=== PATIENT | male | born 1980 | race Caucasian/White ===

== ENCOUNTER 2025-02-05 17:54 | Emergency (ER) | payer BC, SELFPAY ==
--- OUTSIDE RECORDS SUMMARY | 2025-02-05 17:56 | XMS_ITS | Referral Summary ---
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 [place] [address] Jos Rosales MD Cervical radiculopathy Discharge Disposition: Discharge to home or self care 12/25/2024 7:10 AM [facility] - 12/25/2024 11:59 PM [facility] Hospital Encounter [facility] [address] [place] [address] Ericka Thomas NP Cervical radiculopathy (Primary Dx); Cervical spinal stenosis Discharge Disposition: Discharge to home or self care 11/20/2024 7:09 AM [facility] - 11/20/2024 11:59 PM [facility] Hospital Encounter [facility] [address] [place] [address] Ericka Thomas NP Myalgia, other site Discharge Disposition: Discharge to home or self care 11/07/2024 5:41 PM [facility] - 11/07/2024 11:59 PM [facility] Hospital Encounter [address] [place] [address] Cervical radiculopathy Discharge Disposition: Discharge to home or self care from Last 3 Months Allergies No known active allergies Medications triamcinolone (KENALOG) 0.1 % ointment Apply topically 2 (two) times a day as needed for irritation or rash Apply to bilateral arms and legs 30 g 3 Active Additional Information Patient not taking.Reported on 02/28/2024 hydrOXYzine (ATARAX) 25 mg tablet Take 1 tablet (25 mg total) by mouth 3 (three) times a day as needed for itching 20 tablet 3 Active Additional Information Patient not taking.Reported on 02/28/2024 hydrocortisone 2.5 % cream Apply topically 2 (two) times a day as needed (hemorrhoids) 30 g 1 4 Active losartan (COZAAR) 50 mg tablet TAKE 1 TABLET BY MOUTH EVERY DAY 90 tablet [address] (NexIUM) 40 mg capsule TAKE 1 CAPSULE BY MOUTH EVERY DAY BEFORE BREAKFAST 90 capsule 1 4 Active cyclobenzaprine (FLEXERIL) 5 mg tablet Take 1 tablet (5 mg total) by mouth daily as needed for muscle spasms for up to 7 days 7 tablet 5 Active celecoxib (CeleBREX) 200 mg capsuleIndicati ons:Thoracic spine pain Take 1 capsule (200 mg total) by mouth daily 30 capsule 1 5 02/27/20 25 Active Active Problems Problem Noted Date Diagnosed Date Hypertension, essential 02/28/2024 Assessment & Plan (02/28/2024 8:19 AM CDT): Normotensive. Continue losartan. Reviewed lifestyle recommendations. Will continue to monitor. Class 1 obesity due to exces s calories with serious comorbidity and body mass index (BMI) of 30.0 to 30.9 in adult 02/28/2024 Chronic left shoulder pain 02/28/2024 Assessment & Plan (02/28/2024 8:19 AM CDT): Neurovascularly intact. Recommend x-ray and physical therapy. Avoid exacerbating activities. If not improving recommend following up with lawn care specialist. Mixed hyperlipidemia 02/28/2024 Assessment & Plan (02/28/2024 8:20 AM CDT): ASCVD score 3.6%. LDL creeping up. Highly encouraged dietary changes. He does well with exercise. Will repeat fasting lipid panel prior to next appointment. He is in agreement with plan and states understanding. Rectal bleeding 11/01/2022 Assessment & Plan (11/01/2022 1:20 PM [facility]): anusol HC supps HS and colonoscopy BMI 29.0-29.9,adult 01/30/2021 Assessment & Plan (01/30/2021 10:06 AM CDT): Not overweight--athletic/muscular build. Reviewed recommendations for daily intake & activity 20-30 minutes/day. Discussed healthy diet and importance of regular physical activity. 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 Exercises 5x/wk. Refused influenza vaccine 01/30/2021 Annual physical exam 04/29/2020 Assessment & Plan (02/28/2024 8:19 AM CDT): Visit preventive in nature. Reviewed medications, chronic conditions, risk factors, lifestyle recommendations. Follow-up in 1 year with fasting labs prior. Of course sooner for any concerns. Assessment & Plan (01/30/2021 9:45 AM CDT): 1. Eat a healthy diet: focus on lean meats and proteins, more fruits, vegetables and whole grains and low in sugars and fats. Limit red meat and avoid processed meat. 2. Maintain a healthy weight; avoid being overweight. Aim for a normal body mass index (BMI) of 18.5-24.9. Help learning to eat healthier, we can set up appointment with coil placer/shake backboard notcher. 3. Have an active lifestyle, strive for 30 minutes of moderate exercise 5 times a week and strength or resistance training at least twice a week. 4. Use broad-spectrum (UVA+UVB) sunscreen with SPF 30 or greater, is water resistant, limit time spent in the sun (10 am-4pm), wear hat, wear UV protective clothing, wear sunglasses. Never use a tanning bed. Skin that was irradiated may be more sensitive over your lifetime. 5. Does not smoke or chew tobacco. 6. Limit alcohol intake, 2 drinks per day for a man. Assessment & Plan (04/29/2020 11:02 PM CDT): 1. Eat a healthy diet: focus on lean meats and proteins, more fruits, vegetables and whole grains and low in sugars and fats. Limit red meat and avoid processed meat. 2. Maintain a healthy weight; avoid being overweight. Aim for a normal body mass index (BMI) of 18.5-24.9. Help learning to eat healthier, we can set up appointment with coil placer/shake backboard notcher. 3. Have an active lifestyle, strive for 30 minutes of moderate exercise 5 times a week and strength or resistance training at least twice a week. 4. Use broad-spectrum (UVA+UVB) sunscreen with SPF 30 or greater, is water resistant, limit time spent in the sun (10 am-4pm), wear hat, wear UV protective clothing, wear sunglasses. Never use a tanning bed. Skin that was irradiated may be more sensitive over your lifetime. 5. Do not smoke or chew tobacco. 6. Limit alcohol intake, 2 drinks per day for a man. Encounter for screening for lipoid disorders 04/2020 Assessment & Plan (01/30/2021 9:46 AM CDT): Copy of results from 01/29/21 given to Paul Lee. Reviewed results at time of appointment. 05/02/20 QM=684 HDL=61 NI=740 MFI=141 TC/HDL=3.7 01/29/21 OD=100 HDL=53 TG=92 MIN=707 TC/HDL=4.0 Reviewed upward trending LDL & elevated total cholesterol. Assessment & Plan (05/01/2020 9:57 PM CDT): Lipid panel ordered; will call w/results when received. Reviewed diet/exercise recommendations. Esophageal dysphagia 08/09/2018 Overview (08/09/2018): Added automatically from request for surgery [id number] Resolved Problems Problem Noted Date Diagnosed Date Resolved Date BMI 28.0-28.9,adult 05/01/2020 01/31/20 21 Assessment & Plan (05/01/2020 9:56 PM CDT): Discussed healthy diet and importance of regular physical activity. BMI is acceptable for this patient. Immunizations Immunization Administration Dates Next Due Influenza, Split 11/16/2013 Influenza, Trivalent, Preser vative Free, Intramuscular 11/16/2013 Influenza, Unspecified 2024(Deferr ed: Patient Refused),02/17/2023(Deferred: Patient Refused),07/24/2021(Deferred: Patient Refused),01/30/2021(Deferred: Patient Refused),01/30/2021(Deferred: Patient Refused),10/24/2020(Deferred: Patient Refused),10/24/2019(Deferred: Patient Refused),10/24/2019(Deferred: Patient Refused),07/24/2019(Deferred: Patient Refused),07/03/2019(Deferred: Patient Refused),10/24/2018(Deferred: Patient Refused),08/07/2018(Deferred: Patient Refused),07/24/2018(Deferred: Patient Refused),10/24/2017(Deferred: Patient Refused) Social History Tobacco Use Types Packs/Day Years Used Date Smoking Tobacco: Former Cigarettes Q uit: 02/28/2018 Smokeless Tobacco: Never Tobacco Cessation:Counseling Given: Not Answered Comments:Smoking History Packs/day: 1 Packs Alcohol Use Standard Drinks/Week Comments Yes 0 (1 standard drink = 0.6 oz pur e alcohol) occasionally AUDIT-C Answer Date Recorded Q1: How often do you have a drink containing alc ohol? 2-4 times a month 02/17/2023 Q2: How many drinks containi ng alcohol do you have on a typical day when you are drinking? 3 or 4 02/17/2023 Q3: How often do you have si x or more drinks on one occasion? Monthly 02/17/2023 PHQ-2 Answer Date Recorded PHQ-2 Total Score (If total score is 3 or more points, staff should administer the PHQ-9) 2 10/30/2024 PHQ-9 Answer Date Recorded PHQ-9 Total Score 5 10/30/2024 Personal Safety Answer Date Recorded Getting School Help Needed Denies 10/27 Sex and Gender Information Value Date Recorded Sex Assigned at Not on file Legal Sex Male 2:49 AM [facility] Gender Identity Not on file Sexual Orientation Not on file Last Filed Vital Signs Vital Sign Reading Time Taken Comments Blood Pressure 137/93 01/16/2025 11:36 AM CDT Pulse 77 01/16/2025 11:36 AM CDT Temperature 36.3 C (97.4 F) 01/16/2025 11:16 AM CDT Respiratory Rate 16 01/16/2025 11:36 AM CDT Oxygen Saturation 99% 01/16/2025 11:36 AM CDT Inhaled Oxygen Concentration - - Weight 92.1 kg (203 lb) 07/18/2024 10:27 AM CDT Height 175.3 cm (5' 9 ) 07/18/2024 10:27 AM CDT Body Mass Index 29.98 07/18/2024 10:27 AM CDT Plan of Treatment Not on file Procedures Procedure Name Priority Date/Time Associated Diagnosis Comments PAIN MGMT IMAGING CERVICAL/THORACIC EPIDURAL STEROID INJ Schedule Routine, Read Routine (OP Routine) 01/16/2025 11:32 AM CDT Cervical radiculopathy PAIN MGMT IMAGING ULTRASOUND TRIGGER POINT INJ 3+ MUSCLE GROUP Schedule Routine, Read Routine (OP Routine) 11/20/2024 7:09 AM [facility] Myalgia, other site MRI CERVICAL SPINE WO CONTRAST Schedule Routine, Read Routine (OP Routine) 11/07/2024 6:30 PM [facility] Cervical radiculopathy COLONOSCOPY 11/22/2022 11:19 AM [facility] SERUM HEPATITIS PANEL Routine 03/02/2017 3:09 AM CDT from Last 3 Months or Most Recently Relevant to Health Maintenance Results * Imaging Cervical/Thoracic Epidural Steroid INJ (08865) (01/16/2025 11:32 AM CDT) Narrative [facility] - 01/16/2025 11:33 AM CDT The images from this study are not interpreted by Radiology. Please refer to the physician's procedure / OR operative note. us Ericka Thomas NP IMG PAIN MGMT PROCEDURES Fin al Result Performing Organization Address [facility]/ZIP Co de Phone Number [facility] * Imaging Ultrasound Trigger Point INJ 3+ Muscle Groups () (11/20/2024 7:09 AM [facility]) Narrative [facility] - 11/20/2024 7:09 AM [facility] The images from this study are not interpreted by Radiology. Please refer to the physician's procedure / OR operative note. us Jos Rosales MD IMG PAIN MGMT PROCEDURE S Final Result Performing Organization Address [facility] Co de Phone Number [facility] * MRI Cervical Spine WO Contrast (11/07/2024 6:30 PM [facility]) Anatomical Region Laterality Modality Spine N/A Magnetic Resonan ce 11/08/2024 9:04 AM [facility] Narrative 11/08/2024 9:12 AM [facility] EXAM DESCRIPTION: MRI CERVICAL SPINE WO CONTRAST REASON FOR STUDY: Neck pain, chronic, cervical radiculopathy, radicular features after sneezing Left sided neck pain and popping, a few weeks ago, patient sneezed and experienced sharp pain radiation across base of neck and down both arms, continues to have pain TECHNIQUE: Sagittal and Axial imaging includes T1, T2, STIR and gradient echo sequences. COMPARISON: No comparison. FINDINGS: ALIGNMENT: Mild straightening of cervical lordosis. Alignment otherwise is normal. VERTEBRAE: Vertebral body height is maintained. No acute osseous abnormality. DISCS: Multilevel disc degeneration. See detail below. HARDWARE: None in the spine. CORD: Normal in size and signal intensity. INDIVIDUAL LEVELS: C1-C2: No significant spinal stenosis. C2-C3: No significant spinal stenosis or neural foraminal stenosis. C3-C4: Mild disc osteophyte complex with shallow tiny central protrusion. Mild effacement of anterior thecal sac CSF with mild anterior CSF effacement. No cord impingement. No foraminal narrowing.. C4-C5: Disc space narrowing with chronic appearing posterior endplate osteophytic and uncovertebral spurs. Moderate to significant bilateral foraminal narrowing. Moderate spinal stenosis with moderate flattening of the ventral cord. C5-C6: Bulky broad-based posterior vertebral disc osteophytic complex with right-sided asymmetry. Uncovertebral and facet arthritic changes bilaterally. Severe spinal stenosis with moderate cord impingement, right greater than left. Severe right and [id number] left foraminal stenosis. C6-C7: Bilateral uncovertebral spurring. No significant central canal stenosis. Mild bilateral foraminal narrowing. C7-T1: No significant spinal stenosis or neural foraminal stenosis. BASE OF BRAIN: No significant finding. UPPER THORACIC: Incompletely imaged. No significant spinal stenosis or foraminal stenosis. OTHER: Small 1 cm T2 hyperintense focus at the midline base of tongue-vallecula indeterminate but potentially representing small thyroglossal duct cyst.. IMPRESSION: Multilevel cervical spondylosis with severe spinal stenosis and moderate cord impingement at C5-6 with severe right greater than left foraminal narrowing. Moderate to significant bilateral foraminal narrowing at C4-5 with moderate cord flattening. Please correlate with radiculopathy symptoms. Incidental small T2 hyperintense focus at the midline base of tongue-vallecula. This could represent a small thyroglossal duct cyst. Please correlate with clinical factors. THIS IS AN ELECTRONICALLY VERIFIED FINAL REPORT 11/08/2024 9:12 AM - Electronically signed by Kevin Petersen M.D. LC: STANISLAW Report ID: [id number] Reading Location: [id number] Procedure Note Vee Petersen MD - 11/08/2024 EXAM DESCRIPTION: MRI CERVICAL SPINE WO CONTRAST REASON FOR STUDY: Neck pain, chronic, cervical radiculopathy, radicular features after sneezing Left sided neck pain and popping, a few weeks ago, patient sneezed and experienced sharp pain radiation across base of neck and down both arms, continues to have pain TECHNIQUE: Sagittal and Axial imaging includes T1, T2, STIR and gradientecho sequences. COMPARISON: No comparison. FINDINGS: ALIGNMENT: Mild straightening of cervical lordosis. Alignmentotherwise is normal. VERTEBRAE: Vertebral body height is maintained. No acute osseous abnormality. DISCS: Multilevel disc degeneration. See detail below. HARDWARE: None in the spine. CORD: Normal in size and signal intensity. INDIVIDUAL LEVELS: C1-C2: No significant spinal stenosis. C2-C3: No significant spinal stenosis or neural foraminal stenosis. C3-C4: Mild disc osteophyte complex with shallow tiny centralprotrusion. Mild effacement of anterior thecal sac CSF with mild anterior CSFeffacement. No cord impingement. No foraminal narrowing.. C4-C5: Disc space narrowing with chronic appearing posterior endplate osteophytic and uncovertebral spurs. Moderate to significant bilateral foraminal narrowing. Moderate spinal stenosis with moderate flattening ofthe ventral cord. C5-C6: Bulky broad-based posterior vertebral disc osteophytic complexwith right-sided asymmetry. Uncovertebral and facet arthritic changesbilaterally. Severe spinal stenosis with moderate cord impingement, right greater than left. Severe right and unag-jx-kxrbonmq left foraminal stenosis. C6-C7: Bilateral uncovertebral spurring. No significant central canal stenosis. Mild bilateral foraminal narrowing. C7-T1: No significant spinal stenosis or neural foraminal stenosis. BASE OF BRAIN: No significant finding. UPPER THORACIC: Incompletely imaged. No significant spinal stenosis or foraminal stenosis. OTHER: Small 1 cm T2 hyperintense focus at the midline base of tongue-vallecula indeterminate but potentially representing smallthyroglossal duct cyst.. IMPRESSION: Multilevel cervical spondylosis with severe spinal stenosis and moderatecord impingement at C5-6 with severe right greater than left foraminalnarrowing. Moderate to significant bilateral foraminal narrowing at C4-5 withmoderate cord flattening. Please correlate with radiculopathy symptoms. Incidental small T2 hyperintense focus at the midline base of tongue-vallecula. This could represent a small thyroglossal duct cyst.Please correlate with clinical factors. THIS IS AN ELECTRONICALLY VERIFIED FINAL REPORT 11/08/2024 9:12 AM - Electronically signed by Kevin Petersen M.D. LC: STANISLAW Report ID: [id number] Reading Location: [id number] Jos Rosales MD IMG MRI PROCEDURES Rosario l Result * COLONOSCOPY (11/22/2022 11:19 AM [facility]) Anatomical Region Laterality Modality Other Narrative Procedure Note Jeremy Gray MD - 11/22/2022 11:19 AM CST [facility] Patient Name: Paul Lee Procedure Date: 11/22/2022 11:19 AM Date of : 1980 Admit Type: Outpatient Age: 42 Gender: Male Attending MD: Jeremy Gray M.D. Room: [facility] ENDOSCOPY ROOM 2 Note Status: Finalized Patient Profile: Refer to note in patient chart for documentation of history and physical. Procedure: Colonoscopy Indications: This is the patient's first colonoscopy,Hematochezia Referring MD: Chino Allen M.D. Providers: Jeremy Gray M.D. Impression: - Hemorrhoids found on perianal exam. - The entire examined colon is normal. - No specimens collected. Recommendation: - Discharge patient to home. - Resume previous diet. - Continue present medications. - Repeat colonoscopy in 10 years for screening purposes. - Return to primary care physician as previously scheduled. Medicines: Propofol per Anesthesia Complications: No immediate complications. Estimated Blood Loss: Estimated blood loss: none. Procedure: Pre-Anesthesia Assessment: - This assessment was completed [Time ofAssessment] prior to the administration of sedation. The benefits, risks and alternatives of theprocedure and sedation were discussed and informed consentwas obtained. All questions were answered. Please referto the signed informed consent document in the medical record. The bowel preparation used was Miralax and bisacodyl tablets via single dose instruction. The scope was passed under direct vision. TheColonoscope [id number] was introduced through the anus and advanced to the the cecum, identified by appendiceal orifice and ileocecal valve. The colonoscopy was performed without difficulty. The patient tolerated the procedure well. The qualityof the bowel preparation was excellent. The ileocecal valve, appendiceal orifice, and rectum were photographed. Findings: Hemorrhoids were found on perianal exam. The colon (entire examined portion) appeared normal. Electronically signed by Jeremy Gray M.D. Jeremy Gray M.D. 11/22/2022 12:10:25 PM Number of Addenda: 0 Note Initiated On: 11/22/2022 11:19 AM Procedure Code(s): --- Professional --- 55239, Colonoscopy, flexible; diagnostic, including collection of specimen(s) by brushing or washing, when performed (separateprocedure) Diagnosis Code(s): --- Professional --- K92.1, Melena (includes Hematochezia) K64.9, Unspecified hemorrhoids CPT copyright 2020 [employer]. All rights reserved. The codes documented in this report are preliminary and upon information coder reviewmay be revised to meet current compliance requirements. Recognized by the [employer] for promoting quality in endoscopy us Jeremy Gray MD ENDOSCOPY PROCEDURES Final Re sult * Serum Hepatitis panel (03/02/2017 3:09 AM CDT) HAV ab, IgM NON-REACTI VE NON-REACTI VE CDR HISTORICAL RESULTS HBV surface ag NON-REACTI VE NON-REACTI VE CDR HISTORICAL RESULTS HBV core ab, IgM NON-REACTI VE NON-REACTI VE CDR HISTORICAL RESULTS HCV ab NON-REACTI VE NON-REACTI VE CDR HISTORICAL RESULTS Hepatitis signal to cutoff ratio 0.01 <1.00 CDR HISTORICAL RESULTS Serum 03/02/2017 3:09 AM CDT Narrative CDR HISTORICAL RESULTS - 03/04/2017 10:00 AM CDT Test performed at [facility] [address] [place] [address] Director: CURRY GARCIA DO,MPH us Historical Provider LAB BLOOD ORDERABLES Rosario madrid Result CDR HISTORICAL RESULTS from Last 3 Months or Most Recently Relevant to Health Maintenance [place] For more information, please contact: [phone] * Full Code (Latest Code Status on File) Date Activated Date Inactivated Comments 11/22/2022 10:58 AM 11/22/2022 5:03 PM * Full Code Date Activated Date Inactivated Comments 08/18/2018 9:19 AM 08/18/2018 1:03 PM * Full Code Date Activated Date Inactivated Comments 08/18/2018 9:19 AM 08/18/2018 9:19 AM Care Teams 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
--- OUTSIDE RECORDS SUMMARY | 2025-02-05 17:56 | XMS_ITS | Clinical Summary ---
Author Organization [facility] [place] Address [address] [place] [address] Care Team Providers Care Warehouse Picker Name Role Phone Chino Allen MD Primary Care Provider [phone] Jos Rosales MD Unavailable [phone] Allergies No known active allergies Medications triamcinolone [...] If not improving recommend following up with nursing education specialist. Mixed hyperlipidemia 02/28/2024 Assessment & Plan (02/28/2024 8:20 AM CDT): ASCVD score 3.6%. LDL creeping up. Highly encouraged dietary changes. He does well with exercise. Will repeat fasting lipid panel prior to next appointment. He is in agreement with plan and states understanding. Rectal bleeding 11/01/2022 Assessment & Plan (11/01/2022 1:20 PM SHELLFISH PROCESSING MACHINE TENDER): anusol HC supps HS and colonoscopy BMI 29.0-29.9,adult 01/30/2021 Assessment & Plan (01/30/2021 10:06 AM CDT): Not overweight--athletic/muscular build. Reviewed recommendations for daily intake & activity 20-30 minutes/day. Discussed healthy diet and importance of regular physical activity. 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 Exercises 5x/wk. Refused influenza vaccine 01/30/2021 [...] healthier, we can set up appointment with stain maker/client application support specialist. 3. Have an active lifestyle, strive for [...] healthier, we can set up appointment with stain maker/client application support specialist. 3. Have an active lifestyle, strive for [...] Reviewed results at time of appointment. 05/02/20 WP=628 HDL=61 HI=050 MXI=119 TC/HDL=3.7 01/29/21 VM=566 HDL=53 TG=92 QEW=627 TC/HDL=4.0 Reviewed upward trending LDL & elevated total cholesterol. Assessment & Plan (05/01/2020 9:57 PM CDT): Lipid panel ordered; will call w/results when received. Reviewed diet/exercise recommendations. Esophageal dysphagia 08/09/2018 Overview (08/09/2018): Added automatically from request for surgery [id number] Resolved Problems Problem Noted Date Diagnosed Date Resolved Date BMI 28.0-28.9,adult 05/01/2020 01/31/20 Assessment & Plan (05/01/2020 9:56 PM CDT): Discussed healthy diet and importance of regular physical activity. BMI is acceptable for this patient. Encounters Date Type Department Care Team Description 01/16/2025 11:00 AM CDT - 01/16/2025 11:59 PM CDT Hospital Encounter [facility] [address] [facility] A, Greg[address] [place] [address] Jos Rosales MD Cervical radiculopathy Discharge Disposition: Discharge to home or self care 12/25/2024 7:10 AM SHELLFISH PROCESSING MACHINE TENDER - 12/25/2024 11:59 PM [facility] Hospital Encounter [facility] [address] [place], [place] [address]dg A, Greg[address] [place] [address] Ericka Thomas NP Cervical radiculopathy (Primary Dx); Cervical spinal stenosis Discharge Disposition: Discharge to home or self care 11/20/2024 7:09 AM SHELLFISH PROCESSING MACHINE TENDER - 11/20/2024 11:59 PM [facility] [address] [place] [address] Ericka Thomas NP Myalgia, other site Discharge Disposition: Discharge to home or self care 11/07/2024 5:41 PM SHELLFISH PROCESSING MACHINE TENDER - 11/07/2024 11:59 PM SHELLFISH PROCESSING MACHINE TENDER Hospital Encounter [facility] [address] [place] [address] Cervical radiculopathy Discharge Disposition: Discharge to home or self care from Last 3 Months Immunizations Immunization Administration Dates Next Due Influenza, Split 11/16/2013 Influenza, Trivalent, Preser vative Free, Intramuscular 11/16/2013 Influenza, Unspecified 2024(Deferr ed: Patient Refused),02/17/2023(Deferred: Patient Refused),07/24/2021(Deferred: Patient Refused),01/30/2021(Deferred: Patient Refused),01/30/2021(Deferred: Patient Refused),10/24/2020(Deferred: Patient Refused),10/24/2019(Deferred: Patient Refused),10/24/2019(Deferred: Patient Refused),07/24/2019(Deferred: Patient Refused),07/03/2019(Deferred: Patient Refused),10/24/2018(Deferred: Patient Refused),08/07/2018(Deferred: Patient Refused),07/24/2018(Deferred: Patient Refused),10/24/2017(Deferred: Patient Refused) Surgical History Surgery Date Site/Laterality Comments COLONOSCOPY 11/22/2022 Medical History Medical History Date Comments Hx Other Medical Tobaccoism Dysphagia States food gets stuck , states medication is helping, has had vomiting GERD (gastroesophageal reflux disease) Hypertension Family History Medical History Relation Name Comments COPD Father Don COPD; Coronary artery disease Father Don Lauri nary artery disease; Heart attack Father Don 12/23 03/15 Hyperlipidemia Father Don Hyperlipidemi a; Hypertension Father Don Hypertension; Other Father Don Tobaccoism; Diabetes Mother Ioana Diabetes mellit us; Thyroid disease Mother Ioana Thyroid diso rder; Colon cancer Paternal Grandfather Relation Name Status Comments Father Don Mother Ioana Alive Paternal Grandfather Alive Social History Tobacco Use Types Packs/Day Years [...] on file Legal Sex Male 2:49 AM SHELLFISH PROCESSING MACHINE TENDER Gender Identity Not on file Sexual Orientation Not on file Obstetrics History Last Filed Vital Signs Vital Sign Reading [...] 07/18/2024 10:27 AM CDT Plan of Treatment Health Maintenance Due Date Last Done Comments DTaP/Tdap/Td Vaccine (1 - Tdap) 01/21/1991 Varicella Vaccines (1 of 2 - 13+ 2-dose series) 01/21/1993 Hepatitis B Screening 01/21/1998 Regular Well Visit/Exam 18-64 02/27/2025 02/28/2024, 02/17/2023, 02/05/2022, Additional history exists Influenza Vaccine (Season Ended) 2025 11/16/2013, 11/16/2013 Depression Screening 10/30/2025 10/30/2024, 10/30/2024, 02/28/2024, Additional history exists Colon Cancer Screening-Colonoscopy 11/22/2032 11/22/2022 Hepatitis C Screening Completed 03/02/2017 HPV Vaccines Aged Out No longer eligi ble based on patient's age to complete this topic Pneumococcal vaccine <65 Aged Out No longer eligible based on patient's age to complete this topic Procedures Procedure Name Priority Date/Time Associated Diagnosis Comments PAIN MGMT IMAGING CERVICAL/THORACIC EPIDURAL STEROID INJ Schedule Routine, Read Routine (OP Routine) 01/16/2025 11:32 AM CDT Cervical radiculopathy PAIN MGMT IMAGING ULTRASOUND TRIGGER POINT INJ 3+ MUSCLE GROUP Schedule Routine, Read Routine (OP Routine) 11/20/2024 7:09 AM SHELLFISH PROCESSING MACHINE TENDER Myalgia, other site MRI CERVICAL SPINE WO CONTRAST Schedule Routine, Read Routine (OP Routine) 11/07/2024 6:30 PM SHELLFISH PROCESSING MACHINE TENDER Cervical radiculopathy COLONOSCOPY 11/22/2022 11:19 AM SHELLFISH PROCESSING MACHINE TENDER SERUM HEPATITIS PANEL Routine 03/02/2017 3:09 AM CDT from Last 3 Months or Most Recently Relevant to Health Maintenance Results * Imaging Cervical/Thoracic Epidural Steroid INJ (22460) (01/16/2025 11:32 AM CDT) Narrative [facility] - 01/16/2025 11:33 AM CDT The images from this study are not interpreted by Radiology. Please refer to the physician's procedure / OR operative note. us Ericka Thomas NP IMG PAIN MGMT PROCEDURES Peewee al Result [facility] * Imaging Ultrasound Trigger Point INJ 3+ Muscle Groups (03819) (11/20/2024 7:09 AM SHELLFISH PROCESSING MACHINE TENDER) Narrative [facility] - 11/20/2024 7:09 AM SHELLFISH PROCESSING MACHINE TENDER The images from this study are not interpreted by Radiology. Please refer to the physician's procedure / OR operative note. us Jos Rosales MD IMG PAIN MGMT PROCEDURE S Final Result [facility] * MRI Cervical Spine WO Contrast (11/07/2024 6:30 PM SHELLFISH PROCESSING MACHINE TENDER) Anatomical Region Laterality Modality Spine N/A Magnetic Resonan ce 11/08/2024 9:04 AM SHELLFISH PROCESSING MACHINE TENDER Narrative 11/08/2024 9:12 AM SHELLFISH PROCESSING MACHINE TENDER EXAM DESCRIPTION: MRI CERVICAL SPINE WO CONTRAST [...] right greater than left. Severe right and shtb-[id number] left foraminal stenosis. C6-C7: Bilateral uncovertebral spurring. [...] Kevin Petersen M.D. LC: STANISLAW Report ID: [id number] Reading Location: [place] [address] Procedure Note Vee Petersen MD - 11/08/2024 [...] right greater than left. Severe right and frfw-[id number] left foraminal stenosis. C6-C7: Bilateral uncovertebral spurring. [...] Kevin Petersen M.D. LC: STANISLAW Report ID: [id number] Reading Location: [id number] us Jos Rosales MD IM MRI PROCEDURES Rosario l Result * COLONOSCOPY (11/22/2022 11:19 AM SHELLFISH PROCESSING MACHINE TENDER) Anatomical Region Laterality Modality Other Narrative Procedure Note Jeremy Gray MD - 11/22/2022 11:19 AM CST [facility] Patient Name: Paul Lee Procedure Date: 11/22/2022 11:19 AM Date of : 1980 Admit Type: Outpatient Age: 42 Gender: Male Attending MD: Jeremy Gray M.D. Room: [facility] ENDOSCOPY ROOM 2 Note Status: Finalized [...] scope was passed under direct vision. TheColonoscope [id number] was introduced through the anus and advanced [...] 11:19 AM Procedure Code(s): --- Professional --- 74239, Colonoscopy, flexible; diagnostic, including collection of specimen(s) by brushing or washing, when performed (separateprocedure) Diagnosis Code(s): --- Professional --- K92.1, Melena (includes Hematochezia) K64.9, Unspecified hemorrhoids CPT copyright 2020 [employer]. All rights reserved. The codes documented in this report are preliminary and upon consultant luxury and auto. vice president jaguar brand (ex ) reviewmay be revised to meet current compliance requirements. Recognized by the [employer] for promoting quality in endoscopy Jeremy Gray MD ENDOSCOPY PROCEDURES Final Re [...] 03/04/2017 10:00 AM CDT Test performed at [facility] [address] [address] Director: CURRY GARCIA DO,MPH us Historical Provider LAB BLOOD ORDERABLES Rosario madrid Result CDR HISTORICAL RESULTS from Last 3 Months or Most Recently Relevant to Health Maintenance Insurance [employer] [place] [employer] [place] Advance Directives For more information, please contact: [phone] * Full Code (Latest Code Status on File) Date Activated Date Inactivated Comments 11/22/2022 10:58 AM 11/22/2022 5:03 PM * Full Code Date Activated Date Inactivated Comments 08/18/2018 9:19 AM 08/18/2018 1:03 PM * Full Code Date Activated Date Inactivated Comments 08/18/2018 9:19 AM 08/18/2018 9:19 AM Care Teams Warehouse Picker Relationship Specialty Start Date End Date Chino Allen MD [address] [place] [address] PCP - General 01/05/13 Jos Rosales MD [address] [place] [address] Consulting Physician Anesthesiology 10/30/24
[2025-02-05 18:10] VITALS: BP 147/92; PULSE 96; RESP 18; TEMP 36.6; O2SAT 99
--- NOTE | 2025-02-05 18:37 | ED_ITS ---
HPI - URI/Sore Throat General Chief Complaint: Upper Respiratory Infection Stated Complaint: sore throat Time Seen by Provider: 02/05/25 18:37 Source: patient, RN notes reviewed and old records reviewed Mode of arrival: ambulatory Limitations: no limitations History of Present Illness HPI Narrative: 45-year-old male who presents to [facility] with complaints of sore throat since yesterday. Patient reports that he has has had sore throat since Tuesday morning. Patient reports that he was in [place] last week and just returned on Tuesday.Patient states some nasal drainage noted states some history of seasonal allergies. denies any acute cough or chest congestion, reports no known fevers,chills or body aches. MD elicited complaint: sore throat Pertinent past history: seasonal allergies Onset (ago): day(s) (2 days) Pain scale (0-10): 5 Able to tolerate fluids by mouth: Yes Exacerbating factors: swallowing Treatments prior to arrival: none Related Data Home Medications ?Medication ?Instructions ?Recorded ?Confirmed ?Last Taken ?Type pantoprazole PO BID 05/14/21 Unknown History esomeprazole magnesium 40 mg mg 02/05/25 Unknown History capsule,delayed release losartan 50 mg tablet mg 02/05/25 Unknown History Allergies Allergy/AdvReac Type Severity Reaction Status Date / Time No Known Allergies Allergy Verified 02/05/25 18:08 Review of Systems Review of Systems: CONSTITUTIONAL: Denies malaise, chills, sweats, or fever. EYES: Denies visual changes, redness, or discharge. ENT: Reports rhinorrhea, congestion, sinus pressure,no otalgia and positive for sore throat. CARDIOVASCULAR: Denies chest pain, palpitations, or edema. RESPIRATORY: Reports no cough.? Denies dyspnea. GASTROINTESTINAL: Denies abdominal pain, nausea, vomiting, diarrhea SKIN: Denies rash or itching. MUSCULOSKELETAL: Denies myalgia. NEUROLOGIC: Denies headache. All systems reviewed & are unremarkable except as noted in HPI and below [facility] Past Medical History Medical History (Updated 02/07/25 @ 11:40 by Sofia Phillips NP) Seasonal allergies Hypertension GERD (gastroesophageal reflux disease) Social History Social History (Updated 02/07/25 @ 11:33 by Sofia Phillips NP) Smoking status: Former smoker Additional smoking assessment comments: Quit 2017 Alcohol intake: current Alcohol use details: social Substance use: never Gender identity (if verbalized by the patient): Male Comments At time of signature, agree with nursing past medical, surgical, social and family history. There is no relevant family history pertinent to the presenting complaint Exam Narrative: GENERAL: Well-appearing, well-nourished, and in no acute distress. HEAD: Normocephalic EYES: PERRLA, conjunctivae clear ENT: Nares clear, turbinates edematous and erythematous, clear discharge. Mucous membranes moist. TM pearly camacho with dull light reflex bilaterally; no tragal tenderness. Oropharynx erythematous without lesions. Tonsils red not enlarged and without exudate, no drooling, no hoarseness, no trismus, uvula midline.post nasal drainage NECK: Supple. No lymphadenopathy CHEST: Clear to auscultation, breath sounds equal. No wheezing, rhonchi, rales, or stridor. No respiratory distress, speaks in full sentences.no cough noted SAO2 99% on room air HEART: Regular rate and rhythm. No murmur heard. SKIN: Warm, dry, no rash. NEURO: Alert and oriented x3. PSYCH: Normal mood and affect Course Course Emergency Course: Patient is aware of diagnosis, understands and agrees to treatment plan.? Anticipatory guidance given.? Patient agrees to follow-up as directed and is aware of reasons to seek care at the emergency department. Portions of this record may have been created with voice recognition software Level of Care: Express Care Visit Vital Signs Vital signs: Vital Signs Temperature 36.6 C 02/05/25 18:10 Pulse Rate 96 02/05/25 18:10 Respiratory Rate 18 02/05/25 18:10 Blood Pressure 147/92 H 02/05/25 18:10 Pulse Oximetry 99 02/05/25 18:10 Oxygen Delivery Room Air 02/05/25 18:10 Temperature 36.6 C 02/05/25 18:10 Pulse Rate 96 02/05/25 18:10 Respiratory Rate 18 02/05/25 18:10 Blood Pressure 147/92 H 02/05/25 18:10 Pulse Oximetry 99 02/05/25 18:10 Oxygen Delivery Room Air 02/05/25 18:10 Reviewed MDM - URI/Sore Throat MDM Narrative Medical decision making narrative: Differential diagnosis considered: Menard virus, strep pharyngitis, allergic rhinitis, upper respiratory tract infection, sinusitis, rhinosinusitis, nasopharyngitis. viral pharyngitis, otitis media, otitis externa, pneumonia, br onchitis, viral cough syndrome, viral syndrome, and influenza.? Exam findings show no acute concerns or changes; patient is non-toxic appearing and is in no distress.? Patient is appropriate for outpatient treatment and follow-up. Differential Diagnosis Differential diagnosis: Likely upper respiratory infection, viral infection, pharyngitis and other (strep pharyngitis) Medical Records Attestation: I reviewed the patient's medical records. Lab Data Attestation: I reviewed the patient's lab results. Lab results narrative: strep screen negative, culture sent Labs: Lab Results 02/05/25 Range/Units 18:06 POC Grp A Strep Screen Negative (Negative) Critical Care Time Critical Care Time Critical Care Time: No Discharge Plan Discharge Clinical Impression: Upper respiratory infection Qualifiers: URI type: unspecified URI Qualified Code(s): J06.9 - Acute upper respiratory infection, unspecified Pharyngitis Qualifiers: Pharyngitis/tonsillitis etiology: unspecified etiology Qualified Code(s): J02.9 - Acute pharyngitis, unspecified Patient Disposition: Home Condition: Stable Instructions: Upper Respiratory Infection (ED) Additional Instructions: Increase fluids especially juices and water Enzq-kuv-ecdbyqz cough and cold medicine of your choice for your symptoms Zyrtec Claritin or Lala daily include Coricidin brand decongestant heat to the face 20-30 minutes 4-6 times a day for pain Salt water gargles, throat lozenges or throat sprays as desired Tylenol or ibuprofen for any fever pain Your strep test today was negative. A throat culture will be sent to the laboratory for further testing. IF the test is positive, you will receive a phone call within 48 hours and an appropriate antibiotic will be initiated at that time. Patient Language: Urdu Prescriptions: No Action losartan 50 mg tablet esomeprazole magnesium 40 mg capsule,delayed release(DR/EC) pantoprazole PO BID Follow-up/Referrals: Harms,Chino Coles M.D. [Primary Care Provider] - Time of Disposition: 18:53 Quality Eaton Coma Scale Eyes: Open Verbal: Oriented and Alert Motor: Follows Commands Eaton Coma Total Score: 15
[2025-02-05 18:57] LABS: EDSTREPNEGPOS1 Negative (Negative)
== END 2025-02-05 19:02 | disposition home or self-care (01) ==
PROVIDERS: Emergency Provider Registered Nurse; PCP Family Medicine
DX: J06.9 Acute upper respiratory infection, unspecified (principal); J02.9 Acute pharyngitis, unspecified; I10 Essential (primary) hypertension; K21.9 Gastro-esophageal reflux disease without esophagitis; Z87.891 Personal history of nicotine dependence
CPT/HCPCS: 87081; 87880; 99213; G0463